=== PATIENT | male | born 1990 | race Caucasian/White ===

== ENCOUNTER 2021-09-05 15:53 | Emergency (ER) | payer MEDICAID, SELFPAY ==
[2021-09-05 15:54] VITALS: BP 141/80; PULSE 102; RESP 16; TEMP 36.6; O2SAT 98; BMI 26.6
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
== END 2021-09-05 16:52 | disposition home or self-care (01) ==
PROVIDERS: Emergency Provider Emergency Medicine; Visit Provider Emergency Medicine
DX: L03.011 Cellulitis of right finger (principal); F17.210 Nicotine dependence, cigarettes, uncomplicated; Z79.899 Other long term (current) drug therapy
CPT/HCPCS: 10060; 99282

== ENCOUNTER 2021-12-01 07:08 | Observation (INO) | payer MEDICAID, SELFPAY ==
[2021-12-01] VITALS (11 sets, daily range): BP systolic 112–139; BP diastolic 55–73; PULSE 72–84; RESP 13–18; TEMP 36.4–37.1; O2SAT 95–98; BMI 28.3; BMI 28.1
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
[2021-12-01 07:52] LABS: Anion Gap 9 (5-15); BUN 23 mg/dL (7-18); BUN/Creat Ratio 22.3 RATIO (10-20); Calcium,Total 8.8 mg/dL (8.5-10.1); Chloride 110 mmol/L (98-107); Creatinine, Serum 1.03 mg/dL (0.70-1.30); EST Glomerular Filtration Rate 88 mL/min (>60); Est Glom Filt Rate - Afr Amer 107 mL/min (>60); Estimated Creatinine Clearance 95.37 ml/min; Glucose 113 mg/dL (74-106); Sodium Level 140 mmol/L (136-145)
[2021-12-01 08:22] LABS: Salicylate 45.4 mg/dL (2.8-20.0)
--- NOTE | 2021-12-01 08:47 | EKG12_ITS ---
Test Reason : OD Blood Pressure : / mmHG Vent. Rate : 084 BPM Atrial Rate : 084 BPM P-R Int : 170 ms QRS Dur : 082 ms QT Int : 360 ms P-R-T Axes : 055 045 027 degrees QTc Int : 425 ms Normal sinus rhythm Normal ECG Confirmed by NANCY HILLMAN MD ([id number]), dictionary editor HODAN MERCADO ([id number]) on 12/02/2021 10:12:42 AM Referred By: LISBET Confirmed By:NANCY HILLMAN MD
[2021-12-01 09:13] LABS: Absolute Lymphocyte Count 1.83 X10^3/uL (0.83-4.51); Basophil# 0.04 X10^3/uL; Basophil% 0.6 % (0-1); Eosinophil# 0.19 X10^3/uL; Eosinophils% 2.9 % (0-5); Hematocrit 42.4 % (40-54); Hemoglobin 14.3 g/dL (13.0-16.5); Lymphocyte # 1.83 X10^3/ul (0.83-4.51); Lymphocyte % 28.1 % (19-41); Mean Corp Hgb Conc 33.7 g/dL (32-36); Mean Corpuscular Volume 88.9 fL (80-94); Mean Platelet Vol. 10.8 fl (6.2-12.0); Monocyte% 6.1 % (0-10); NRBC Flagged by Analyzer 0 % (0-5); Neutrophil # 4.03 X10^3/uL (2.7-7.7); Neutrophil % 61.8 % (47-70); Platelet Count 295 K/mm3 (150-450); RBC Distribution Width CV 12.8 % (11.6-14.6); RBC Distribution Width SD 41.9 fl (35.1-43.9); Red Blood Count 4.77 M/mm3 (4.6-6.2); White Blood Count 6.5 K/mm3 (4.4-11.0)
[2021-12-01] MEDS: Sodium Bicarbonate 8.4% 50 ML Syringe 100 MEQ IV (09:16)
[2021-12-01 09:26] LABS: Acetaminophen (Tylenol) Level < 2.0 ug/mL (10.0-30.0)
[2021-12-01] MEDS: Amox/Clavulanate 875 MG Tablet PO ×2 (09:32→21:21)
--- NOTE | 2021-12-01 09:39 | ED.RN ---
Right IV infiltrated. pt given an icepack and seems to help with discomfort. Iv taken out and new one placed in other arm
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
[2021-12-01 11:10] LABS: Alcohol, Blood (Medical)-Serum < 3.0 mg/dL
[2021-12-01 11:22] LABS: AST(SGOT) 30 U/L (15-37); Alanine Aminotransfer ALT/SGPT 29 U/L (16-61); Albumin, Serum 3.1 g/dL (3.2-5.0); Alkaline Phosphatase 42 U/L (45-117); Bilirubin, Direct < 0.05 mg/dL (0.00-0.30); Globulin 2.5 g/dL (2.2-4.2); Protein, Total 5.6 g/dL (6.4-8.2)
[2021-12-01 11:26] LABS: Blood Gas Specimen Type VEN; VBG BASE EXCESS -6 mmol/L (-1.0-3.5); VBG Bicarbonate 19 mmol/L (22-26); VBG PO2 68 mmHg (25-40); VBG SO2 94 % (50-70); VBG TCO2 20 mmol/L (23-33); VBG pCO2 29.1 mmHg (41-51); VBG pH 7.42 (7.32-7.42)
[2021-12-01] MEDS: BUPRENORPHINE HCL 8 MG TAB.SUBL SL (13:22)
[2021-12-01 14:04] LABS: Bacteria 0 SEEN /hpf (None Seen); Red Blood Cells-Urine 0 SEEN /hpf (0-5); White Blood Cells 0 SEEN /hpf (0-5)
[2021-12-01 14:22] LABS: Color, Urine Yellow (Yellow); Glucose, Dipstick Normal (Normal); Ketone-Dipstick 15 mg/dl (Negative); Leukocyte Esterase-Dipstick 25 /ul (Negative); Nitrite-Dipstick Negative (Negative); Occult Blood-Urine Negative /ul (Negative); Protein-Dipstick 15 mg/dl (Negative); Urine Bilirubin Dipstick Negative (Negative); Urine Clarity Clear (Clear); Urine Urobilinogen 1 mg/dl (Normal)
[2021-12-01 14:28] LABS: Squamous Epithelial Cells - UA 0-5 SEEN /hpf (0-5)
[2021-12-01 14:29] LABS: Mucous, Urine 1+ /hpf (<or=2+)
[2021-12-01 14:34] LABS: Salicylate 36.3 mg/dL (2.8-20.0)
[2021-12-01 14:34] LABS: Amphetamine Urine VISTA NEGATIVE (<1000 ng/mL); Barbiturate Urine VISTA NEGATIVE (< 200 ng/mL); Benzodiazepine Urine VISTA NEGATIVE (< 200 ng/mL); Cocaine Urine VISTA NEGATIVE (< 300 ng/mL); Ecstacy Urine VISTA NEGATIVE (< 500 ng/mL); Methadone Urine VISTA NEGATIVE (< 300 ng/mL); PCP Urine VISTA NEGATIVE (< 25 ng/mL); THC Urine VISTA NEGATIVE (< 50 ng/mL); Vista UDS pH Range 7
[2021-12-01 14:41] LABS: Blood Gas Specimen Type VEN; O2 Delivery Device Room Air; VBG BASE EXCESS -2 mmol/L (-1.0-3.5); VBG Bicarbonate 21 mmol/L (22-26); VBG PO2 79 mmHg (25-40); VBG SO2 97 % (50-70); VBG TCO2 22 mmol/L (23-33); VBG pCO2 26.1 mmHg (41-51); VBG pH 7.51 (7.32-7.42)
[2021-12-01] MEDS: 0.9% Saline Lock 10 ML Syringe IV (15:16)
[2021-12-01 16:59] LABS: Anion Gap 5 (5-15); BUN 21 mg/dL (7-18); BUN/Creat Ratio 20.6 RATIO (10-20); Calcium,Total 8.7 mg/dL (8.5-10.1); Chloride 109 mmol/L (98-107); Creatinine, Serum 1.02 mg/dL (0.70-1.30); EST Glomerular Filtration Rate 89 mL/min (>60); Est Glom Filt Rate - Afr Amer 108 mL/min (>60); Estimated Creatinine Clearance 96.31 ml/min; Glucose 138 mg/dL (74-106); Potassium 3.6 mmol/L (3.5-5.1); Sodium Level 139 mmol/L (136-145)
[2021-12-01] MEDS: Ibuprofen 400 MG Tablet 800 MG PO (20:14)
[2021-12-01 20:27] LABS: Anion Gap 5 (5-15); BUN 22 mg/dL (7-18); BUN/Creat Ratio 22.8 RATIO (10-20); Calcium,Total 8.6 mg/dL (8.5-10.1); Chloride 106 mmol/L (98-107); Creatinine, Serum 0.97 mg/dL (0.70-1.30); EST Glomerular Filtration Rate 95 mL/min (>60); Est Glom Filt Rate - Afr Amer 115 mL/min (>60); Estimated Creatinine Clearance 101.27 ml/min; Glucose 122 mg/dL (74-106); Potassium 3.6 mmol/L (3.5-5.1); Sodium Level 139 mmol/L (136-145)
[2021-12-01 22:36] LABS: Blood Gas Specimen Type VEN; SITE RV; VBG BASE EXCESS 3 mmol/L (-1.0-3.5); VBG Bicarbonate 27 mmol/L (22-26); VBG PO2 122 mmHg (25-40); VBG SO2 99 % (50-70); VBG TCO2 28 mmol/L (23-33); VBG pCO2 40.8 mmHg (41-51); VBG pH 7.43 (7.32-7.42)
[2021-12-01 22:52] LABS: Salicylate 21.8 mg/dL (2.8-20.0)
[2021-12-02 00:57] LABS: Anion Gap 5 (5-15); BUN 21 mg/dL (7-18); BUN/Creat Ratio 24.2 RATIO (10-20); Calcium,Total 8.6 mg/dL (8.5-10.1); Chloride 106 mmol/L (98-107); Creatinine, Serum 0.87 mg/dL (0.70-1.30); EST Glomerular Filtration Rate 108 mL/min (>60); Est Glom Filt Rate - Afr Amer 130 mL/min (>60); Estimated Creatinine Clearance 112.91 ml/min; Glucose 108 mg/dL (74-106); Potassium 3.4 mmol/L (3.5-5.1); Sodium Level 139 mmol/L (136-145)
[2021-12-02 02:31] LABS: Salicylate 17.9 mg/dL (2.8-20.0)
[2021-12-02 02:55] VITALS: PULSE 66
[2021-12-02 03:15] VITALS: BP 119/63; PULSE 71; RESP 16; TEMP 36.4; O2SAT 99
[2021-12-02] MEDS: Ibuprofen 400 MG Tablet 800 MG PO (04:03)
[2021-12-02 04:40] LABS: Anion Gap 5 (5-15); BUN 19 mg/dL (7-18); BUN/Creat Ratio 25.1 RATIO (10-20); Calcium,Total 8.4 mg/dL (8.5-10.1); Chloride 105 mmol/L (98-107); Creatinine, Serum 0.76 mg/dL (0.70-1.30); EST Glomerular Filtration Rate 126 mL/min (>60); Est Glom Filt Rate - Afr Amer 152 mL/min (>60); Estimated Creatinine Clearance 129.25 ml/min; Glucose 111 mg/dL (74-106); Potassium 3.7 mmol/L (3.5-5.1); Sodium Level 137 mmol/L (136-145)
[2021-12-02 04:44] LABS: Salicylate 16.2 mg/dL (2.8-20.0)
[2021-12-02 07:03] VITALS: PULSE 67
[2021-12-02 07:21] LABS: Blood Gas Specimen Type VEN; VBG BASE EXCESS 2 mmol/L (-1.0-3.5); VBG Bicarbonate 28 mmol/L (22-26); VBG PO2 54 mmHg (25-40); VBG SO2 84 % (50-70); VBG TCO2 30 mmol/L (23-33); VBG pCO2 53.9 mmHg (41-51); VBG pH 7.33 (7.32-7.42)
[2021-12-02 07:34] LABS: Anion Gap 4 (5-15); BUN 17 mg/dL (7-18); BUN/Creat Ratio 20.3 RATIO (10-20); Calcium,Total 8.7 mg/dL (8.5-10.1); Chloride 106 mmol/L (98-107); Creatinine, Serum 0.84 mg/dL (0.70-1.30); EST Glomerular Filtration Rate 112 mL/min (>60); Est Glom Filt Rate - Afr Amer 136 mL/min (>60); Estimated Creatinine Clearance 116.94 ml/min; Glucose 111 mg/dL (74-106); Potassium 3.8 mmol/L (3.5-5.1); Sodium Level 139 mmol/L (136-145)
[2021-12-02] MEDS: Ondansetron 4 MG/2 ML Vial IV (07:55)
[2021-12-02] MEDS: 0.9% Saline Lock 10 ML Syringe IV (07:56)
[2021-12-02 08:53] VITALS: BP 114/59; PULSE 69; RESP 18; TEMP 36.3; O2SAT 95
[2021-12-02] MEDS: Acetaminophen 500 MG Tablet 1000 MG PO (09:13)
[2021-12-02] MEDS: BUPRENORPHINE HCL 8 MG TAB.SUBL SL (09:14)
[2021-12-02] MEDS: Amox/Clavulanate 875 MG Tablet PO (09:14)
--- NOTE | 2021-12-02 11:12 | DS.PCM_ITS ---
Providers Date of Admission: 12/01/21 Date of Discharge: 12/02/21 Primary Care Physician: No Primary Care Phys Reason For Visit: aspirin toxicity Diagnosis Discharge Diagnosis (1) Aspirin toxicity: Status: Acute Code(s): T39.011A - Poisoning by aspirin, accidental (unintentional), initial encounter (2) Dental infection: Status: Acute Code(s): K04.7 - Periapical abscess without sinus Medications at Discharge Home Medications buprenorphine-naloxone 1 ea SUBLINGUAL DAILY 12/01/21 hydroxyzine pamoate 25 mg PO PRN PRN 12/01/21 melatonin 10 mg PO PRN PRN 12/01/21 amoxicillin-pot clavulanate 1 tab PO BID #14 tab 12/02/21 ibuprofen 800 mg PO Q8H PRN #15 tab 12/02/21 ondansetron 4 mg PO Q8H PRN #14 tab 12/02/21 Hospital Course Summary of Care Provided Minutes Spent on Discharge: 36 Hospital Course: KALPANA WEST, is a 31 M who presented to the emergency department [facility] on 12/01/2021 with a chief complaint of decreased hearing and tinnitus. He has a history of depression and substance abuse for which he takes Suboxone. He states his last use was approximately 1 year ago and his drug of choice was heroin. He indicated he had developed a tooth ache the day prior to admission and took multiple zagh-wyk-diqffox Emma aspirin to try to relieve his pain. He indicated it was probably 1 small bottle the 24 hours period. He indicated he woke up from a nap around 3 PM and noticed he had tinnitus and decreased hearing by about 60%. He also had some associated nasal congestion sore throat nausea. He indicates he feels weak and dehydrated. He has had no [facility] sick contacts. Vital signs emergency department are unremarkable with a temperature of 97.6, heart rate of 83, blood pressure 139/73, respirate of 16 and oxygen saturation of 97% on room air. His CBC is completely unremarkable. His BMP is unremarkable. LFTs were unremarkable. Given his tinnitus a salicylate level was obtained and found to be 45.4 which is a little more than twice the upper limit of normal at 20 on our lab. A Tylenol level was less than 2. Given these findings Poison control was contacted and with his symptoms being in the mild to moderate range alkalinization with frequent monitoring was recommended. He was started on a bicarb drip in the emergency department and was initiated with Augmentin for his dental pain. The patient did well and his his salicylate level was monitored every 4 hours. It decreased below 30 at 1805 for the first time with his repeat at 2208 being 21.8. At that time his bicarb drip was discontinued. A repeat level was obtained at 4 AM on the day of discharge and was 16.2. The patient indicated he was feeling much better and his hearing was back to normal. He did complain of a headache for which she was given some Tylenol and ibuprofen. He had no other other complaints other than his persistent dental issues and was encouraged to follow-up with dentistry as he has extremely poor dentition at baseline. He was given a prescription for Augmentin, Zofran, and ibuprofen for pain. We had extensive discussion both on the day of admission and the day of discharge with regards to taking medications as directed. Patient voiced understanding and agreed. He was discharged in stable condition on 12/02/2021. Discharge diagnoses: Salicylate toxicity-resolved Dental infection Tobacco abuse Hypokalemia-resolved History of IV drug use Depression Anxiety Physical Exam Const alert, oriented x3, no apparent distress, average body habitus, healthy appearing and well nourished Constitutional Narrative: Pleasant white middle-aged male lying in bed, lying in bed, appears comfortable, nontoxic General Appearance: cooperative, comfortable, well kempt and well developed Orientation / Consciousness: awake Exam Limitations: no limitations HEENT normocephalic, head/scalp atraumatic, hearing grossly normal bilaterally and moist oral mucous membranes; Negative for dentition normal Eyes PERRL, EOMs intact bilaterally and conjunctivae normal Eyes Narrative: No scleral icterus Neck no lymphadenopathy, supple, no JVD and no carotid bruits Neck Narrative: Trachea midline, no thyroid enlargement Resp normal respiratory effort, no retractions, no use of accessory muscles and clear to auscultation bilaterally Auscultation: Negative for crackles, rales, rhonchi or wheezes Cardio regular rate, regular rhythm, S1 normal heart sound, S2 normal heart sound, no murmurs, no rub, no gallops, no clicks and no JVD GI normal to inspection, nondistended, normoactive bowel sounds, soft to palpation, non-tender and non-distended; Negative for hepatosplenomegaly Extremity no clubbing, cyanosis or edema Extremity Narrative: 2+ pedal pulses Skin no rashes or lesions noted, no wounds, skin turgor normal, no jaundice, no petechiae and no mottling Neuro oriented x3, CN's II-XII intact bilaterally, moves all extremities and no focal motor deficits Sensorium / Orientation: awake and alert Speech: speech normal Motor Exam: strength 5/5 throughout Psych affect normal Psych Narrative: Appropriate and very pleasant Weight / BMI Weight Weight: 81.647 kg Body Mass Index (BMI) 28.1 ABG / Lab / Microbiology Data Result Diagrams: 12/01/21 07:32 12/02/21 06:58 Laboratory: Laboratory Results - last 24 hr 12/01/21 10:46: Total Bilirubin 0.30, Direct Bilirubin < 0.05, AST 30, ALT 29, Alkaline Phosphatase 42 L, Total Protein 5.6 L, Albumin 3.1 L, Globulin 2.5 12/01/21 13:55: Salicylates 36.3 H* 12/01/21 14:00: Urine Color Yellow, Urine Clarity Clear, Urine pH 7.0, Ur Specific [place] 1.010, Urine Protein 15 H, Urine Glucose (UA) Normal, Urine Ketones 15 H, Urine Occult Blood Negative, Urine Nitrite Negative, Urine Bilirubin Negative, Urine Urobilinogen 1 H, Ur Leukocyte Esterase 25 H, Urine RBC 0 SEEN, Urine WBC 0 SEEN, Ur Squamous Epith Cells 0-5 SEEN, Urine Bacteria 0 SEEN, Urine Mucus 1+ 12/01/21 14:00: Urine Opiates Screen NEGATIVE, Urine Methadone Screen NEGATIVE, Ur Barbiturates Screen NEGATIVE, Ur Phencyclidine Scrn NEGATIVE, Ur Amphetamines Screen NEGATIVE, MDMA (Ecstasy) Screen NEGATIVE, U Benzodiazepines Scrn NEGATIVE, Urine Cocaine Screen NEGATIVE, U Cannabinoids Screen NEGATIVE, Ur Drug Screen Comment 12/01/21 16:19: Sodium 139, Potassium 3.6, Chloride 109 H, Carbon Dioxide 25.0, Anion Gap 5, BUN 21 H, Creatinine 1.02, Estim Creat Clear Calc 96.31, Est GFR (MDRD) Af Amer 108, Est GFR (MDRD) Non-Af 89, BUN/Creatinine Ratio 20.6 H, Glucose 138 H, Calcium 8.7 12/01/21 18:05: Salicylates 29.0 H 12/01/21 18:12: Urine pH 8.0 12/01/21 20:00: Sodium 139, Potassium 3.6, Chloride 106, Carbon Dioxide 28.0, Anion Gap 5, BUN 22 H, Creatinine 0.97, Estim Creat Clear Calc 101.27, Est GFR (MDRD) Af Amer 115, Est GFR (MDRD) Non-Af 95, BUN/Creatinine Ratio 22.8 H, Glucose 122 H, Calcium 8.6 12/01/21 22:08: Salicylates 21.8 H 12/01/21 22:30: Urine pH 8.0 12/02/21 00:05: Sodium 139, Potassium 3.4 L, Chloride 106, Carbon Dioxide 28.0, Anion Gap 5, BUN 21 H, Creatinine 0.87, Estim Creat Clear Calc 112.91, Est GFR (MDRD) Af Amer 130, Est GFR (MDRD) Non-Af 108, BUN/Creatinine Ratio 24.2 H, Glucose 108 H, Calcium 8.6 12/02/21 02:10: Salicylates 17.9 12/02/21 04:00: Salicylates 16.2 12/02/21 04:00: Sodium 137, Potassium 3.7, Chloride 105, Carbon Dioxide 27.0, Anion Gap 5, BUN 19 H, Creatinine 0.76, Estim Creat Clear Calc 129.25, Est GFR (MDRD) Af Amer 152, Est GFR (MDRD) Non-Af 126, BUN/Creatinine Ratio 25.1 H, Glucose 111 H, Calcium 8.4 L 12/02/21 06:58: Sodium 139, Potassium 3.8, Chloride 106, Carbon Dioxide 29.0, Anion Gap 4 L, BUN 17, Creatinine 0.84, Estim Creat Clear Calc 116.94, Est GFR (MDRD) Af Amer 136, Est GFR (MDRD) Non-Af 112, BUN/Creatinine Ratio 20.3 H, Glucose 111 H, Calcium 8.7 12/02/21 09:43: Urine pH 8.0 Microbiology: Microbiology 12/01/21 07:32 Nasal Secretion SARS-CoV-2 & FLU Antigen (Rapid) - Final ABG: ABG 12/01/21 12/01/21 12/01/21 09:35 14:31 18:31 Specimen Type QUYNH QUYNH Cancelled Sample Site Cancelled O2 % Cancelled VBG pH 7.42 7.51 H Cancelled VBG pH (Temp Correct) Cancelled VBG pCO2 (Temp Corrct Cancelled VBG pO2 68 H 79 H Cancelled VBG HCO3 19 L 21 L Cancelled VBG Total CO2 20 L 22 L Cancelled VBG O2 Sat (Calc) 94 H 97 H Cancelled VBG Base Excess -6 L -2 L Cancelled POC Mix VBG pCO2 Pt Tmp 29.1 L 26.1 L Cancelled Respiration Rate Cancelled O2 Delivery Device Room Air Cancelled Liter Flow Cancelled Minute Volume Cancelled Inspiratory Time Cancelled Expiratory Time Cancelled Tidal Volume Cancelled Mean Airway Pressure Cancelled POC PEEP Cancelled Peak Inspir Pressure Cancelled POC Pressure Suppt Cancelled Pressure Control Cancelled EPAP Cancelled IPAP Cancelled Blood Gas Comments Cancelled Crit Call To/Read Back Cancelled Blood Gas Notified Whom Cancelled Blood Gas Notified Time Cancelled Clinical Comments Cancelled 12/01/21 12/01/21 12/02/21 18:41 22:23 07:16 Specimen Type Cancelled QUYNH QUYNH Sample Site Cancelled RV O2 % Cancelled VBG pH Cancelled 7.43 H 7.33 VBG pH (Temp Correct) Cancelled VBG pCO2 (Temp Corrct Cancelled VBG pO2 Cancelled 122 H 54 H VBG HCO3 Cancelled 27 H 28 H VBG Total CO2 Cancelled 28 30 VBG O2 Sat (Calc) Cancelled 99 H 84 H VBG Base Excess Cancelled 3 2 POC Mix VBG pCO2 Pt Tmp Cancelled 40.8 L 53.9 H Respiration Rate Cancelled O2 Delivery Device Cancelled Liter Flow Cancelled Minute Volume Cancelled Inspiratory Time Cancelled Expiratory Time Cancelled Tidal Volume Cancelled Mean Airway Pressure Cancelled POC PEEP Cancelled Peak Inspir Pressure Cancelled POC Pressure Suppt Cancelled Pressure Control Cancelled EPAP Cancelled IPAP Cancelled Blood Gas Comments Cancelled Crit Call To/Read Back Cancelled Blood Gas Notified Whom Cancelled Blood Gas Notified Time Cancelled Clinical Comments Cancelled D/C Instructions Discharge Diet: No restrictions Discharge Activity: Return to Normal Activity Meaningful Use Info Meaningful Use Diagnoses (Choose all that apply): None applicable Discharge Plan Admission Admit Date/Time: 12/01/21 10:45 Primary Reason for Your Visit: Aspirin toxicity Attending Provider: Bernice Barnes Primary Care Provider: Care Physician,No Primary Instructions Additional Instructions / Restrictions: 1. Please follow-up with a dentist as soon as possible for your dental infection Discharge Orders/Prescriptions Prescriptions: New amoxicillin-pot clavulanate 875-125 mg Tablet 1 tab PO BID Qty: 14 RF: 0 ondansetron 4 mg tablet,disintegrating 4 mg PO Q8H PRN (Reason: nausea and vomiting) Qty: 14 RF: 0 ibuprofen 800 mg tablet 800 mg PO Q8H PRN (Reason: pain) Qty: 15 RF: 0 Continued hydroxyzine pamoate 25 mg capsule 25 mg PO PRN PRN (Reason: Anxiety) RF: 0 buprenorphine-naloxone 8-2 mg film 1 ea sublingual DAILY RF: 0 melatonin 10 mg tablet 10 mg PO PRN PRN (Reason: Sleep) RF: 0 Referrals / Follow Up: Care Physician,No Primary [Primary Care Provider] - Disposition Disposition (needs filled in before D/C Order can be placed): Home, Self Care Charges/Coding Visit Charges Inpatient E&M: 64575 Disch Hosp
--- NOTE | 2021-12-02 11:42 | CASEMGMT ---
This RN CM to room to as pt's home address listed as [facility] [address]. Pt states plan is to go back to [facility] and pt states has resources he needs and states no further concerns/needs for discharge. Pt asks about eating lunch prior to discharge as he will miss lunch there. Pt ordered lunch at this time and Royer KEEN updated, voices understanding. Pt thanks this RN ASHLY for assistance/concern. Garry KEEN CM
== END 2021-12-02 11:22 | disposition home or self-care (01) ==
LOC: ED 07:30 → PCU 11:04
PROVIDERS: Admitting Provider Internal Medicine; Emergency Provider Emergency Medicine; Visit Provider Internal Medicine
DX: T39.011A Poisoning by aspirin, accidental (unintentional), initial encounter (principal); J02.9 Acute pharyngitis, unspecified; K04.7 Periapical abscess without sinus; R51.9 Headache, unspecified; R11.0 Nausea; H91.90 Unspecified hearing loss, unspecified ear; F41.9 Anxiety disorder, unspecified; F17.210 Nicotine dependence, cigarettes, uncomplicated; E87.6 Hypokalemia; H93.19 Tinnitus, unspecified ear; F32.A Depression, unspecified; Z79.899 Other long term (current) drug therapy
CPT/HCPCS: 36415; 80048; 80076; 80307; 80329; 81001; 82077; 82803; 83986; 85025; 87428; 93005; 96365; 96366; 96375; 96376; 99218; 99285; 99406; A4216; G0378; G0480; J2405

== ENCOUNTER 2021-12-21 09:04 | Emergency (ER) | payer MEDICAID, SELFPAY ==
[2021-12-21 09:04] VITALS: BP 140/73; PULSE 72; RESP 20; TEMP 36.7; O2SAT 98; BMI 27.7
--- NOTE | 2021-12-21 09:50 | RAD_ITS ---
STUDY: X-RAY CHEST REASON FOR EXAM: Male, 31 years old. Cough fever TECHNIQUE: Single AP portable view of the chest. COMPARISON: Comparison is made with prior study 04/24/2016. FINDINGS: The lungs are clear and expanded. Scattered calcified granulomas. There is no demonstrated pleural abnormality. Normal size heart. Normal mediastinum and mustapha. Normal visualized pulmonary arteries. Normal visualized aortic arch and descending thoracic aorta. Normal visualized thoracic spine. Normal visualized ribs, clavicles, and shoulders. There is no demonstrated abnormality of the visualized soft tissue structures of the upper abdomen. RAD/Chest 1 View (Portable) IMPRESSION: Normal x-ray examination of the chest. Electronically Signed: Jarrett Vazquez MD at 11:24 EDT ,
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
[2021-12-21 10:30] LABS: Absolute Lymphocyte Count 2.19 X10^3/uL (0.83-4.51); Absolute Neutrophil Count 3.5 X10^3/uL (2.0-7.7); Basophil# 0.02 X10^3/uL; Basophil% 0.3 % (0-1); Eosinophil# 0.17 X10^3/uL; Eosinophils% 2.7 % (0-5); Hematocrit 37.4 % (40-54); Hemoglobin 12.8 g/dL (13.0-16.5); Lymphocyte # 2.19 X10^3/ul (0.83-4.51); Lymphocyte % 35.3 % (19-41); Mean Corp Hgb Conc 34.2 g/dL (32-36); Mean Corpuscular Volume 87.8 fL (80-94); Mean Platelet Vol. 9.8 fl (6.2-12.0); Monocyte# 0.35 X10^3/uL; Monocyte% 5.6 % (0-10); NRBC Flagged by Analyzer 0 % (0-5); Neutrophil # 3.46 X10^3/uL (2.7-7.7); Neutrophil % 55.8 % (47-70); Platelet Count 267 K/mm3 (150-450); RBC Distribution Width CV 12.1 % (11.6-14.6); RBC Distribution Width SD 38.9 fl (35.1-43.9); Red Blood Count 4.26 M/mm3 (4.6-6.2); White Blood Count 6.2 K/mm3 (4.4-11.0)
== END 2021-12-21 11:49 | disposition home or self-care (01) ==
PROVIDERS: Emergency Provider Emergency Medicine; Visit Provider Emergency Medicine
DX: B34.9 Viral infection, unspecified (principal); F17.210 Nicotine dependence, cigarettes, uncomplicated; Z28.310 Unvaccinated for COVID-19; Z28.9 Immunization not carried out for unspecified reason
CPT/HCPCS: 71045; 85025; 87428; 87635; 99282; A4216; U0003; U0005

== ENCOUNTER 2022-02-10 17:23 | Emergency (ER) | payer MEDICAID, SELFPAY ==
[2022-02-10 17:24] VITALS: BP 125/67; PULSE 73; RESP 18; TEMP 36.2; O2SAT 95; BMI 27.3
--- NOTE | 2022-02-10 18:10 | CM.ED ---
FREDDIE Note FREDDIE met with patient and his friend in the room. Patient gave verbal consent to speak to patient in the presence of his guest. Patient said that he is here for detox. Patient said I relapsed on meth as he said that his last use was a couple of hours ago. Patient said that he is also withdrawing from Suboxone. Patient said that he is trying to get into residential program and identified the program as [facility]. Patient reports that he has been on Suboxone for 5 years and was receiving it at [facility] but now is getting it off the street. Patient said that he can't handle it referencing the Suboxone.Patient said that he is using 16-24 mg of Suboxone a day and when asked about meth patient said not a whole lot. Patient said that his meth use was little over a gram for the past 4-5 days. Patient said that he last had Suboxone over 24 hours ago. SW went back to patient's room and asked patient to clarify his drug use. Patient said that he used meth just today but relapsed 4-5 days ago. Patient was asked about his plans regarding Suboxone and if he wanted detox from the Suboxone or if he wanted to continue the Suboxone and patient said I don't know. Patient said I don't feel good . Patient said that he last used meth a couple of hours ago. Patient was advised that he had stated he felt he couldn't handle the Suboxone but it could be the meth that patient took today. FREDDIE left voice mail for Thad Pierce addiction therapist. FREDDIE texted Thad Pierce addiction therapist. FREDDIE called Thad Suarez but did not leave her a message as oncology social work has already left her a message. FREDDIE called treatment navigator phone and updated Thad Pierce. She inquired as if patient would want to taper off or if he wants to continue with Suboxone. FREDDIE met with patient and patient said that he wants to taper off suboxone. Thad advised that this is not life threatening such as alcohol or benzo so it is up to the MD Jules if patient is admitted. FREDDIE updated ED Physician. Darby Hoyt
[2022-02-10 20:00] VITALS: RESP 18
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
[2022-02-10 20:48] VITALS: RESP 18
== END 2022-02-10 20:59 | disposition home or self-care (01) ==
PROVIDERS: Emergency Provider Emergency Medicine; Visit Provider Emergency Medicine
DX: F11.23 Opioid dependence with withdrawal (principal); F17.210 Nicotine dependence, cigarettes, uncomplicated
CPT/HCPCS: 99282